=== PATIENT | female | born 1960 | race Caucasian/White ===

== ENCOUNTER 2019-04-20 10:17 | Emergency (ER) | payer OTHER ==
[~2019-04-20] VITALS: Ht 162.6 cm; Wt 89.4 kg
[2019-04-20 10:20] VITALS: Ht 162.6 cm; Wt 89.4 kg
[2019-04-20 12:06] VITALS: BP 161/93
== END 2019-04-20 12:11 | disposition home or self-care (01) ==
LOC: ED 10:17
DX: M54.5 Low back pain (principal); E11.9 Type 2 diabetes mellitus without complications
CPT/HCPCS: J1885